=== PATIENT | male | born 1980 | race Caucasian/White ===

== ENCOUNTER 2020-03-13 19:33 | Emergency (ER) | payer BC ==
[2020-03-13] MEDS ORDERED: Diphtheria,Pertussis(Acell),Tetanus Vaccine 0.5 ML Syringe IM ONE (19:52)
--- NOTE | 2020-03-13 19:57 | EDM.PDOC ---
ED HPI GENERAL MEDICAL PROBLEM - General Chief Complaint: Lower Extremity Injury/Pain Stated Complaint: TOE INJURY Time Seen by Provider: 03/13/20 19:36 - History of Present Illness INITIAL COMMENTS - FREE TEXT/NARRATIVE: History of present illness: 39-year-old male presenting with right foot 2nd toe injury which occurred 1 hour prior to arrival. Apparently he dropped an object on his toe which was heavy and had immediate pain and bleeding after that. He thinks his last tetanus shot was 11 years ago. He was wearing a soft soled/fabric shoe at the time. Denies any pain elsewhere in the foot other than the second toe. Has been able to bear weight since the injury. Review of systems: As per history of present illness and below otherwise all systems reviewed and negative. Past medical history: As per history of present illness and as reviewed below otherwise noncontributory. Hypertension, cholesterol Surgical history: As per history of present illness and as reviewed below otherwise noncontributory. Eye surgery Social history: No reported history of drug or alcohol abuse. No tobacco Family history: As per history of present illness and as reviewed below otherwise noncontributory. Physical exam: GEN: no acute distress, well appearing HEENT: Atraumatic, normocephalic, mucous membranes moist, Neck: supple. Lungs: No respiratory distress. Heart: RRR Extremities: Right foot second toe with ecchymosis, tenderness and dried blood. No active bleeding. Toenail 50% avulsed, 50% still in place. No obvious laceration through the underlying nailbed. Neurovascularly intact. Neuro: Awake, alert, oriented. Neuro Exam nonfocal. Skin: warm, dry, no lesions Diagnostics: [] Therapeutics: [] MDM: Impression: [] Plan: [] Definitive disposition and diagnosis as appropriate pending reevaluation and review of above. right foot - 2nd digit Pain Score (Numeric/FACES): 5 - Related Data Allergies Allergy/AdvReac Type Severity Reaction Status Date / Time No Known Allergies Allergy Verified 03/13/20 19:53 Home Meds: Home Meds Losartan [Cozaar] 50 mg PO DAILY 03/13/20 [History] amLODIPine [Norvasc] 5 mg PO DAILY 03/13/20 [History] atorvaSTATin [Lipitor] 20 mg PO BEDTIME 03/13/20 [History] buPROPion [Wellbutrin SR] 300 mg PO DAILY 03/13/20 [History] hydroCHLOROthiazide [Hydrochlorothiazide] 25 mg PO DAILY 03/13/20 [History] Review of Systems - Review of Systems Review Of Systems: See Below (See dictation) ED EXAM, GENERAL - Physical Exam Exam: See Below (See dictation) ED TRAUMA EXTREMITY PROCEDURES - Laceration/Wound Repair Right second toe Lac/Wound Length In cm: 1 (Toe nail avulsion) Appearance: Clean Skin Prep: Saline Exploration/Debridement/Repair: Wound Explored Closed With: Dermabond Progress/Comments: Patient's right second toenail was completely avulsed. Therefore the proximal nail fold was lifted and the nail replaced into the fold and tacked down with Dermabond. Patient tolerated well. Course - Vital Signs Text/Narrative:: Dropped heavy object on foot, primarily second toe. Partial nail avulsion though 50% still intact. Performed which shows bone spur, and possible chronic versus acute deformity at the distal second toe. As this is the site of the injury this may be acute and therefore the patient was placed in postop/hard soled cast shoe. Patient was referred to podiatry (both locally, and as the patient lives in [place] he was also given podiatry resources and [place] as well). Tetanus was updated. Last Recorded V/S: Last Vital Signs Temp 98.5 F 03/13/20 19:50 Pulse 88 03/13/20 19:50 Resp 18 03/13/20 19:50 BP 144/88 H 03/13/20 19:50 Pulse Ox 98 03/13/20 19:50 - Orders/Labs/Meds Orders: Active Orders 24 hr Category Date Time Status Vaccines to be Administered [RC] PER UNIT ROUTINE Care 03/13/20 19:52 Active DME for Discharge [COMM] Stat Oth 03/13/20 20:22 Ordered Meds: Medications Discontinued Medications Generic Name Dose Route Start Last Admin Trade Name Freq PRN Reason Stop Dose Admin Diphtheria/Tetanus/Acell Pertussis 0.5 ml 03/13/20 19:52 03/13/20 20:21 Adacel IM 03/13/20 19:53 0.5 ml .ONCE ONE Administration Octyl Cyanoacrylate 1 applic 03/13/20 20:27 03/13/20 20:40 Dermabond Mini TOP 03/13/20 20:28 1 applic ONETIME ONE Administration Octyl Cyanoacrylate Confirm 03/13/20 20:28 03/13/20 20:40 Dermabond Mini Administered 03/13/20 20:29 Not Given Dose 1 applic .ROUTE .[facility] ONE - Re-Assessments/Exams Free Text/Narrative Re-Assessment/Exam: 03/13/20 20:24 X-ray results and plan of care discussed with the patient. He agrees with the plan. 03/13/20 20:42 Upon reinspection of the patient's toe, the toenail appears to have completely avulsed. Therefore the nail was reinserted under the eponychium/proximal nail fold and re-tacked down with Dermabond. Patient tolerated well. Departure - Departure Time of Disposition: 20:45 Disposition: Home, Self-Care 01 Clinical Impression: Avulsion of toenail of right foot Toe fracture, right Qualifiers: Encounter type: initial encounter Toe: lesser toe Fracture type: closed Phala nx: distal Fracture alignment: nondisplaced Qualified Code(s): S92.534A - Nondisplaced fracture of distal phalanx of right lesser toe(s), initial encounter for closed fracture - Discharge Information Instructions: Nail Avulsion, Toe Fracture, [id number], Wound Care, Adult, Sutures, [place], or Adhesive Wound Closure, [id number] Referrals: Amnada Ibarra NP [Primary Care Provider] - Mitesh Ennis DPM [Physician] - 2 Days Malik Gerber DPM [Ordering Only Provider] - 2 Days Forms: ED Department Discharge Additional Instructions: The following information is given to patients seen in the emergency department who are being discharged to home. This information is to outline your options for follow-up care. We provide all patients seen in our emergency department with a follow-up referral. The need for follow-up, as well as the timing and circumstances, are variable depending upon the specifics of your emergency department visit. If you don't have a primary care physician on staff, we will provide you with a referral. We always advise you to contact your personal physician following an emergency department visit to inform them of the circumstance of the visit and for follow-up with them and/or the need for any referrals to a consulting specialist. The emergency department will also refer you to a specialist when appropriate. This referral assures that you have the opportunity for follow-up care with a specialist. All of these measure are taken in an effort to provide you with optimal care, which includes your follow-up. Under all circumstances we always encourage you to contact your private physician who remains a resource for coordinating your care. When calling for follow-up care, please make the office aware that this follow-up is from your recent emergency room visit. If for any reason you are refused follow-up, please contact the [facility] Emergency Department at and asked to speak to the emergency department charge nurse. Sepsis Event Note (ED) - Focused Exam Vital Signs: Vital Signs Temp Pulse Resp BP Pulse Ox 03/13/20 19:50 98.5 F 88 18 144/88 H 98 - My Orders Last 24 Hours: My Active Orders 03/13/20 19:52 Vaccines to be Administered [RC] PER UNIT ROUTINE 03/13/20 20:22 DME for Discharge [COMM] Stat - Assessment/Plan Last 24 Hours: My Active Orders 03/13/20 19:52 Vaccines to be Administered [RC] PER UNIT ROUTINE 03/13/20 20:22 DME for Discharge [COMM] Stat
--- NOTE | 2020-03-13 20:20 | CR ---
Right foot: 3 views of the right foot were obtained. Comparison: No prior foot exam is available. Slight deformity is noted within distal phalanx of the second toe most likely due to old injury. Spur is noted at the attachment of the Achilles tendon to the calcaneus. No acute fracture or other bony abnormality is appreciated. Impression: 1. Findings which I believe are fairly chronic as noted above. 2. Nothing acute is definitely appreciated on right foot exam. Diagnostic code #2 Study was dictated in MDT
[2020-03-13] MEDS ORDERED: Octyl 2-Cyanoacrylate 1 APPLIC TUBE TOP ONE (20:27)
[2020-03-13] MEDS ORDERED: Octyl 2-Cyanoacrylate 1 APPLIC TUBE ONE (20:28)
== END 2020-03-13 21:00 | disposition home or self-care (01) ==
LOC: MW.ED 19:33
DX: S92.534A Nondisplaced fracture of distal phalanx of right lesser toe(s), initial encounter for closed fracture (principal); Z23 Encounter for immunization; Z79.899 Other long term (current) drug therapy; W20.8XXA Other cause of strike by thrown, projected or falling object, initial encounter
CPT/HCPCS: 11730; 73630; 90471; 90715; 99283; A9270